=== PATIENT | female | born 1960 | race Caucasian/White ===

== ENCOUNTER → 2019-09-12 | Outpatient (CLI) | payer BC | LOC: COL.RAD 10:57 | DX: N95.0 Postmenopausal bleeding (principal); N85.00 Endometrial hyperplasia, unspecified ==

== ENCOUNTER → 2020-04-15 | Outpatient (CLI) | payer BC | LOC: MC.RAD 08:28 | DX: Z12.31 Encounter for screening mammogram for malignant neoplasm of breast (principal) ==

== ENCOUNTER 2020-04-23 08:23 | Day surgery (SDC) | payer BC ==
[~2020-04-23] VITALS: Ht 165.1 cm; Wt 99.2 kg
[2020-04-23 08:56] VITALS: BP 135/75; PULSE 76; TEMP 98
[2020-04-23] MEDS ORDERED: PRINZIDE 12.5 M1 TA1 PO (09:07)
[2020-04-23] MEDS ORDERED: SYNTHROID0.088 MG/T PO (09:08)
[2020-04-23] MEDS ORDERED: EFFEXOR-XR150 MG PO (09:08)
[2020-04-23] MEDS ORDERED: SINGULAIR 110 MG/TAB PO (09:08)
[2020-04-23] MEDS ORDERED: GLUCOPHAGE500 MG/TAB PO (09:09)
[2020-04-23] MEDS ORDERED: ZOCOR 20MG20 MG PO (09:09)
[2020-04-23] MEDS ORDERED: CLARITIN-D 10 M1 T24 PO (09:10)
[2020-04-23] MEDS ORDERED: THE MEDICINE S200 M2 PO (09:11)
[2020-04-23] MEDS ORDERED: IRON TABLETS325 MG PO (09:30)
[2020-04-23 11:05] VITALS: BP 101/43; PULSE 76; TEMP 98.8
--- NOTE | 2020-04-23 11:05 | NUR ---
Pt to [facility] via cart from endo. Pt drowsy, but awake. Pt denies pain or nausea. Pt wanting to sleep. Warm blanket provided. Will continue to monitor. Call light within reach.
[2020-04-23 11:20] VITALS: BP 91/66; PULSE 65
--- NOTE | 2020-04-23 11:20 | NUR ---
Pt sleeping. Respirations even and unlabored. Call light within reach.
[2020-04-23 11:35] VITALS: BP 95/63; PULSE 61
--- NOTE | 2020-04-23 11:35 | NUR ---
Pt continues to rest. Denies needs. Call light within reach.
[2020-04-23 11:50] VITALS: BP 101/59; PULSE 58
--- NOTE | 2020-04-23 11:50 | NUR ---
Soda and crackers given per pt request. Will continue to monitor. Call light within reach.
--- NOTE | 2020-04-23 12:15 | NUR ---
Discharge instructions reviewed. Pt voices understanding. IV site discontinued with all parts intact. Pt up to dress. Call light within reach.
--- NOTE | 2020-04-23 12:29 | NUR ---
Pt escorted to private car via wheel chair. Pt accompanied home by her brother.
== END 2020-04-23 12:42 | disposition home or self-care (01) ==
LOC: SDCO 08:23
DX: Z12.11 Encounter for screening for malignant neoplasm of colon (principal); E11.9 Type 2 diabetes mellitus without complications; F32.9 Major depressive disorder, single episode, unspecified; I10 Essential (primary) hypertension; G47.33 Obstructive sleep apnea (adult) (pediatric); E78.5 Hyperlipidemia, unspecified; E03.9 Hypothyroidism, unspecified; E66.01 Morbid (severe) obesity due to excess calories; J45.909 Unspecified asthma, uncomplicated; Z90.49 Acquired absence of other specified parts of digestive tract; Z79.84 Long term (current) use of oral hypoglycemic drugs; Z20.828 Contact with and (suspected) exposure to other viral communicable diseases; Z68.38 Body mass index [BMI] 38.0-38.9, adult
CPT/HCPCS: J2704; J7030

== ENCOUNTER → 2021-09-06 | Outpatient (CLI) | payer BC ==
[~2021-09-06] MED LIST: CLARITIN-D 10 M1 T24 PO; EFFEXOR-XR150 MG PO; GLUCOPHAGE500 MG/TAB PO; IRON TABLETS325 MG PO; PRINZIDE 12.5 M1 TA1 PO; SINGULAIR 110 MG/TAB PO; SYNTHROID0.088 MG/T PO; THE MEDICINE S200 M2 PO; ZOCOR 20MG20 MG PO
== END ==
LOC: MC.RAD 11:17
DX: Z12.31 Encounter for screening mammogram for malignant neoplasm of breast (principal)